=== PATIENT | male | born 1990 | race Caucasian/White ===

== ENCOUNTER 2019-01-28 13:04 | Outpatient (CLI) | payer BC ==
--- NOTE | 2019-01-28 13:52 | RAD ---
LEFT SHOULDER 3 VIEWS: Date: 01/28/19 INDICATION: Pain. FINDINGS: There is no fracture, dislocation, or significant arthropathy. IMPRESSION: No acute osseous abnormality of the left shoulder. POS: [facility]
== END 2019-01-28 13:05 | disposition home or self-care (01) ==
LOC: SCSRAD 13:04
PROVIDERS: ATTEND Family Medicine
DX: S46.912A Strain of unspecified muscle, fascia and tendon at shoulder and upper arm level, left arm, initial encounter (principal)